=== PATIENT | female | born 1970 | race Hispanic/Latino ===

== ENCOUNTER 2019-07-25 21:22 | Emergency (ER) | payer SELFPAY ==
[2019-07-25] MEDS ORDERED: dexAMETHasone 10 MG/ML VIAL ONE (22:04)
[2019-07-25] MEDS ORDERED: DIPHENHYDRAMINE 50 MG/ML VIAL ONE (22:05)
[2019-07-25] MEDS ORDERED: METOCLOPRAMIDE 10 MG/2mL INJ ONE (22:05)
--- NOTE | 2019-07-25 23:17 | ER ---
Nurse's Notes [facility] Name: Margarita Duran Age: 48 yrs Sex: Female : 1970 Arrival Date: 07/25/2019 Time: 21:25 Bed 18 Private MD: Diagnosis: Headache Presentation: 07/25 21:32 Presenting complaint: Patient states: Headache since Saturday with light sensitivity; lp1 States pain to back of head; Denies any nausea, vomiting. Transition of care: patient was not received from another setting of care. Onset of symptoms was July 21, 2019. Risk Assessment: Do you want to hurt yourself or someone else? Patient reports no desire to harm self or others. Initial Sepsis Screen: Does the patient meet any 2 criteria? No. Patient's initial sepsis screen is negative. Does the patient have a suspected source of infection? No. Patient's initial sepsis screen is negative. Care prior to arrival: None. 21:32 Method Of Arrival: Ambulatory lp1 21:32 Acuity: MACIEL 3 lp1 Triage Assessment: 22:15 Headache History: The patient has had previous headaches and this one is more severe mg2 than previous episodes. General: Appears in no apparent distress. comfortable, Behavior is calm, cooperative. Pain:. 23:00 Pain: Also complains of no other associated symptoms. 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 - Social history:: Smoking status: Patient/guardian denies using tobacco. - Ebola Screening: : No symptoms or risks identified at this time. Screenin:34 Abuse screen: Denies threats or abuse. Denies injuries from another. Nutritional lp1 screening: No deficits noted. Tuberculosis screening: No symptoms or risk factors identified. 22:15 Fall Risk IV access (20 points). mg2 Assessment: 22:13 General: Appears in no apparent distress. comfortable, Behavior is calm, cooperative. mg2 Pain: Complains of pain in right side of the presybeterian Pain does not radiate. Pain currently is 9 out of 10 on a pain scale. Quality of pain is described as aching, Pain began gradually, Is intermittent. Neuro: Level of Consciousness is awake, alert, obeys commands, Oriented to person, place, time, situation. Neuro: Reports headache in right presybeterian. Cardiovascular: Capillary refill < 3 seconds Patient's skin is warm and dry. Respiratory: Airway is patent Respiratory effort is even, unlabored, Respiratory pattern is regular, symmetrical. GI: No signs and/or symptoms were reported involving the gastrointestinal system. : No signs and/or symptoms were reported regarding the genitourinary system. EENT: No signs and/or symptoms were reported regarding the EENT system. Derm: Skin is intact, is healthy with good turgor, Skin is pink, warm \T\ dry. normal. Musculoskeletal: Circulation, motion, and sensation intact. Capillary refill < 3 seconds. 22:52 Reassessment: Patient appears in no apparent distress at this time. Patient denies pain mg2 at this time. Patient states feeling better. Vital Signs: 21:33 BP 179 / 106; Pulse 88; Resp 18; Temp 98.5; Pulse Ox 100% on R/A; Weight 77.11 kg (R); lp1 Height 5 ft. 4 in. (162.56 cm); Pain 10/10; 22:03 BP 146 / 99; Pulse 82; Resp 18; Pulse Ox 100% on R/A; lp1 22:47 BP 128 / 80; Pulse 81; Resp 18; Pulse Ox 98% on R/A; mg2 23:44 BP 138 / 70; Pulse 80; Resp 18; Temp 98.5; Pulse Ox 100% on R/A; Pain 0/10; mg2 21:33 Body Mass Index 29.18 (77.11 kg, 162.56 cm) lp1 ED Course: 21:25 Patient arrived in ED. cl3 21:30 Dylan Maynard PA is PHCP. jr8 21:30 George Veliz MD is Attending Physician. jr8 21:33 Triage completed. lp1 21:34 Arm band placed on. lp1 21:40 Garth Samuel, PUJA is Primary Nurse. mg2 22:13 No provider procedures requiring assistance completed. Inserted saline lock: 20 gauge mg2 in right antecubital area, using aseptic technique. Blood collected. 22:15 Patient has correct armband on for positive identification. Pulse ox on. NIBP on. Door mg2 closed. Warm blanket given. 22:17 CT completed. Patient moved back from CT. bq 22:28 CT Head Brain wo Cont In Process Unspecified. EDMS 23:45 IV discontinued, intact, bleeding controlled, No redness/swelling at site. Pressure mg2 dressing applied. Administered Medications: 22:12 Drug: Decadron - Dexamethasone 10 mg Route: IVP; Site: right antecubital; mg2 23:44 Follow up: Response: No adverse reaction; Marked relief of symptoms; Pain is decreased mg2 22:13 Drug: Benadryl 12.5 mg Route: IVP; Site: right antecubital; mg2 23:44 Follow up: Response: No adverse reaction; Marked relief of symptoms mg2 22:13 Drug: Reglan 10 mg Route: IVP; Site: right antecubital; mg2 23:44 Follow up: Response: No adverse reaction; Marked relief of symptoms mg2 Outcome: 23:16 Discharge ordered by MD. humphreys 23:46 Discharged to home ambulatory, with family. mg2 23:46 Condition: stable 23:46 Discharge instructions given to patient, family, Instructed on discharge instructions, follow up and referral plans. Demonstrated understanding of instructions, follow-up care. 23:46 Patient left the ED. mg2 Signatures: Dispatcher [employer] EDMS Ruchi Rodriguez bq Nati Ruffin RN RN lp1 Dylan Maynard PA PA jr8 Garth Samuel RN RN mg2 Colette oHrvath cl3
--- NOTE | 2019-07-25 23:17 | EDPHYS ---
Physician Documentation [facility] Name: Margarita Duran Age: 48 yrs Sex: Female : 1970 Arrival Date: 07/25/2019 Time: 21:25 Bed 18 Private MD: ED Physician George Veliz HPI: 07/25 23:11 This 48 yrs old Female presents to ER via Ambulatory with complaints of jr8 Headache. 23:11 The patient complains of pain to the forehead and right holiness. The patient describes jr8 the headache as a pressure. Onset: The symptoms/episode began/occurred 4 day(s) ago. Associated signs and symptoms: Pertinent negatives: altered mental status, dizziness, fever, malaise, nausea, neck stiffness, paresthesias. Severity of symptoms: At its worst the pain was moderate, in the emergency department the pain has improved. Headache History: Denies prior headaches. The symptoms are alleviated by nothing. the symptoms are aggravated by nothing. Pt reports LAWSON since Saturday without associated symptoms. . 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 - Social history:: Smoking status: Patient/guardian denies using tobacco. - Ebola Screening: : No symptoms or risks identified at this time. ROS: 23:13 Constitutional: Negative for fever, chills, and weight loss, Eyes: Negative for injury, jr8 pain, redness, and discharge, ENT: Negative for injury, pain, and discharge, Neck: Negative for injury, pain, and swelling, Cardiovascular: Negative for chest pain, palpitations, and edema, Respiratory: Negative for shortness of breath, cough, wheezing, and pleuritic chest pain, Abdomen/GI: Negative for abdominal pain, nausea, vomiting, diarrhea, and constipation, Back: Negative for injury and pain, MS/Extremity: Negative for injury and deformity. 23:13 Neuro: Positive for headache. Exam: 23:13 Constitutional: This is a well developed, well nourished patient who is awake, alert, jr8 and in no acute distress. Head/Face: Normocephalic, atraumatic. Eyes: Pupils equal round and reactive to light, extra-ocular motions intact. Lids and lashes normal. Conjunctiva and sclera are non-icteric and not injected. Cornea within normal limits. Periorbital areas with no swelling, redness, or edema. ENT: Nares patent. No nasal discharge, no septal abnormalities noted. Tympanic membranes are normal and external auditory canals are clear. Oropharynx with no redness, swelling, or masses, exudates, or evidence of obstruction, uvula midline. Mucous membranes moist. Neck: Trachea midline, no thyromegaly or masses palpated, and no cervical lymphadenopathy. Supple, full range of motion without nuchal rigidity, or vertebral point tenderness. No Meningismus. Chest/axilla: Normal chest wall appearance and motion. Nontender with no deformity. No lesions are appreciated. Cardiovascular: Regular rate and rhythm with a normal S1 and S2. No gallops, murmurs, or rubs. Normal PMI, no JVD. No pulse deficits. Respiratory: Lungs have equal breath sounds bilaterally, clear to auscultationNo rales, rhonchi or wheezes noted. No increased work of breathing, no retractions or nasal flaring. Abdomen/GI: Soft, non-tender, with normal bowel sounds. No distension or tympany. No guarding or rebound. No evidence of tenderness throughout. Back: No spinal tenderness. No costovertebral tenderness. Full range of motion. MS/ Extremity: Pulses equal, no cyanosis. Neurovascular intact. Full, normal range of motion. Neuro: Awake and alert, GCS 15, oriented to person, place, time, and situation. Cranial nerves II-XII grossly intact. Motor strength 5/5 in all extremities. Sensory grossly intact. Cerebellar exam normal. Normal gait. Vital Signs: 21:33 BP 179 / 106; Pulse 88; Resp 18; Temp 98.5; Pulse Ox 100% on R/A; Weight 77.11 kg (R); lp1 Height 5 ft. 4 in. (162.56 cm); Pain 10/10; 22:03 BP 146 / 99; Pulse 82; Resp 18; Pulse Ox 100% on R/A; lp1 22:47 BP 128 / 80; Pulse 81; Resp 18; Pulse Ox 98% on R/A; mg2 23:44 BP 138 / 70; Pulse 80; Resp 18; Temp 98.5; Pulse Ox 100% on R/A; Pain 0/10; mg2 21:33 Body Mass Index 29.18 (77.11 kg, 162.56 cm) lp1 MDM: 21:30 Patient medically screened. jr8 23:13 Data reviewed: vital signs, nurses notes, radiologic studies. Data interpreted: Pulse jr8 oximetry: on room air is 98 %. Interpretation: normal. Counseling: I had a detailed discussion with the patient and/or guardian regarding: the historical points, exam findings, and any diagnostic results supporting the discharge/admit diagnosis, radiology results, the need for outpatient follow up, a family practitioner. Response to treatment: the patient's symptoms have mildly improved after treatment. ED course: Pt pain improved with medications, CT negative for acute findings, will DC to FU with PCP. 07/25 21:57 Order name: CT Head Brain wo Cont jr8 07/25 21:57 Order name: ; Complete Time: 22:03 jr8 Administered Medications: 22:12 Drug: Decadron - Dexamethasone 10 mg Route: IVP; Site: right antecubital; mg2 23:44 Follow up: Response: No adverse reaction; Marked relief of symptoms; Pain is decreased mg2 22:13 Drug: Benadryl 12.5 mg Route: IVP; Site: right antecubital; mg2 23:44 Follow up: Response: No adverse reaction; Marked relief of symptoms mg2 22:13 Drug: Reglan 10 mg Route: IVP; Site: right antecubital; mg2 23:44 Follow up: Response: No adverse reaction; Marked relief of symptoms mg2 Disposition: 07/25/19 23:16 Discharged to Home. Impression: Headache. - Condition is Stable. - Discharge Instructions: General Headache Without Cause, Migraine Headache. - Medication Reconciliation Form, Thank You Letter form. - Follow up: Private Physician; When: 2 - 3 days; Reason: Recheck today's complaints, Re-evaluation by your physician. - Problem is new. - Symptoms are resolved. Addendum: 07/27/2019 08:37 Co-signature as Attending Physician, George Veliz MD I agree with the assessment and c lawson plan of care. Signatures: Dispatcher [employer] George Pierre MD MD cha Pena, Laura RN RN lp1 Dylan Maynard PA PA jr8 Garth Samuel RN RN mg2 Corrections: (The following items were deleted from the chart) 07/25 23:46 23:16 07/25/2019 23:16 Discharged to Home. Impression: Headache. Condition is Stable. mg2 Forms are Medication Reconciliation Form, Thank You Letter, Antibiotic Education, Prescription Opioid Use. Follow up: Private Physician; When: 2 - 3 days; Reason: Recheck today's complaints, Re-evaluation by your physician. Problem is new. Symptoms are resolved. jr8
[2019-07-26] VITALS: TEMP 98.5
[2019-07-26 00:39] VITALS: BP 128/80; O2SAT 98
--- NOTE | 2019-07-27 12:22 | RAD REPORT ---
EXAM DESCRIPTION: CT - Head Brain Wo Cont - 07/25/2019 10:53 pm CLINICAL HISTORY: 48 years Female HEADACHE COMPARISON: None TECHNIQUE: Contiguous axial images of the brain were obtained without the administration of intraven ous contrast.This exam was performed according to our departmental dose-optimization program which in cludes use of Automated Exposure Control, adjustment of the mA and/or kV according to patient size an d/or use of iterative reconstruction technique. FINDINGS: Brain: No acute intracranial hemorrhage. No extra-axial collection. No mass effect or cesar iation. Confluent periventricular and subcortical white matter hypodensity is noted. Ventricles: Within normal limits in size. Globes and orbits: No acute abnormality. Bones: No acute osseous finding Paranasal sinuses: Paranasal sinuses are clear. Mastoid air cells: Trace right mastoid effusion. Soft tissues: Within normal limits IMPRESSION: No acute intracranial abnormality. Confluent periventricular and subcortical white matter hypodensity, likely chronic small vessel ische izzy changes. If clinical concern for acute ischemia, consider MRI brain without contrast for further evaluation. Electronically signed by: Chadwick Reynolds DO 07/25/2019 10:43 PM CDT Due to temporary technical issues with the PACS/Fluency reporting system, reports are being signed by the in house radiologist as a courtesy to ensure prompt reporting. The interpreting radiologist is f ully responsible for the content of the report.
== END 2019-07-25 23:46 | disposition home or self-care (01) ==
LOC: ER 21:22
DX: R51 Headache (principal); I10 Essential (primary) hypertension
CPT/HCPCS: 70450; 96374; 96375; 99284; J1100; J1200; J2765